=== PATIENT | male | born 2000 | race African-American/Black ===

== ENCOUNTER 2023-06-08 23:13 | Emergency (ER) | payer MEDICAID ==
[~2023-06-08] VITALS: Ht 175.3 cm; Wt 72.6 kg
[2023-06-08 23:26] VITALS: BP 144/76; PULSE 86; RESP 18; TEMP 98.1; O2SAT 98
== END 2023-06-09 03:30 | disposition left against medical advice (07) ==
LOC: ER 23:21
DX: Z53.21 Procedure and treatment not carried out due to patient leaving prior to being seen by health care provider (principal)
CPT/HCPCS: 93005; 99281